=== PATIENT | female | born 1950 | race Caucasian/White ===

== ENCOUNTER → 2023-10-24 06:24 | Day surgery (SDC) | payer OTHER, SELFPAY | LOC: GI 06:24 | PROVIDERS: ATTENDING PHYSICIAN Internal Medicine | DX: K91.850 Pouchitis (principal); K52.3 Indeterminate colitis; K63.89 Other specified diseases of intestine; K63.3 Ulcer of intestine; K62.4 Stenosis of anus and rectum; L29.0 Pruritus ani; Z98.0 Intestinal bypass and anastomosis status | CPT/HCPCS: 44386; 88305; 88342 ==

== ENCOUNTER → 2024-05-04 08:48 | Outpatient (REF) | payer OTHER, SELFPAY | LOC: WDC 08:48 | PROVIDERS: ATTENDING PHYSICIAN Obstetrics & Gynecology | DX: Z12.31 Encounter for screening mammogram for malignant neoplasm of breast (principal) | CPT/HCPCS: 77063; 77067 ==

== ENCOUNTER → 2024-07-06 06:29 | Day surgery (SDC) | payer OTHER, SELFPAY | LOC: GI 06:29 | PROVIDERS: ATTENDING PHYSICIAN Internal Medicine | DX: K91.858 Other complications of intestinal pouch (principal); K91.850 Pouchitis; K60.2 Anal fissure, unspecified; R21 Rash and other nonspecific skin eruption; K62.4 Stenosis of anus and rectum; Z98.0 Intestinal bypass and anastomosis status; K63.3 Ulcer of intestine; Z90.49 Acquired absence of other specified parts of digestive tract; K52.3 Indeterminate colitis; Y83.8 Other surgical procedures as the cause of abnormal reaction of the patient, or of later complication, without mention of misadventure at the time of the procedure | CPT/HCPCS: 44386; 88305 ==

== ENCOUNTER → 2024-07-23 09:22 | Outpatient (REF) | payer OTHER, SELFPAY | LOC: RAD 09:22 | PROVIDERS: ATTENDING PHYSICIAN Otolaryngology Facial Plastic Surgery; FAMILY PHYSICIAN Family Medicine | DX: E04.2 Nontoxic multinodular goiter (principal) | CPT/HCPCS: 76536 ==

== ENCOUNTER → 2024-11-26 08:12 | Outpatient (REF) | payer OTHER, SELFPAY | LOC: RCS 08:12 | PROVIDERS: ATTENDING PHYSICIAN Physician Assistant Medical; FAMILY PHYSICIAN Family Medicine | DX: R00.1 Bradycardia, unspecified (principal) | CPT/HCPCS: 93225; 93226 ==

== ENCOUNTER → 2024-12-03 09:28 | Outpatient (REF) | payer OTHER, SELFPAY ==
[2024-12-03 11:59] LABS: Free T3 3.35 pg/ml (2.77-5.27); Free T4 0.97 ng/dl (0.78-2.19)
[2024-12-03 12:12] LABS: TSH 1.75 uIU/ml (0.47-4.68); TSH Reflex To Free T4 1.75 uIU/ml (0.47-4.68)
== END ==
LOC: REG 09:28
PROVIDERS: ATTENDING PHYSICIAN Physician Assistant Medical; FAMILY PHYSICIAN Family Medicine
DX: R00.2 Palpitations (principal)
CPT/HCPCS: 36415; 84439; 84443; 84481

== ENCOUNTER → 2024-12-25 13:46 | Outpatient (REF) | payer OTHER, SELFPAY | LOC: RCS 13:46 | PROVIDERS: ATTENDING PHYSICIAN Nuclear Medicine Nuclear Cardiology; FAMILY PHYSICIAN Family Medicine | DX: R07.9 Chest pain, unspecified (principal); R42 Dizziness and giddiness; R55 Syncope and collapse; I95.1 Orthostatic hypotension | CPT/HCPCS: 93306 ==

== ENCOUNTER → 2024-12-28 08:25 | Outpatient (REF) | payer OTHER, SELFPAY | LOC: HWRCS 08:25 | PROVIDERS: ATTENDING PHYSICIAN Nuclear Medicine Nuclear Cardiology; FAMILY PHYSICIAN Family Medicine | DX: R07.9 Chest pain, unspecified (principal); R42 Dizziness and giddiness; R55 Syncope and collapse; I95.1 Orthostatic hypotension | CPT/HCPCS: 78452; 93017; A9500; J2785 ==

== ENCOUNTER → 2025-02-24 14:22 | Outpatient (REF) | payer OTHER, SELFPAY ==
[2025-02-24 15:42] LABS: % Basophils 0.4 % (0-2); % Eosinophils 1.3 % (0-6); % Immature Granulocytes 0.4 % (0-0.5); % Lymphocytes 20.6 % (20.5-51.1); % Monocytes 7.6 % (1.7-9.3); % Neutrophils 69.7 % (42.2-75.2); Absolute Eosinophils 0.1 10^3/uL (0-0.7); Absolute Lymphocytes 1.6 10^3/uL (1.2-3.4); Absolute Monocytes 0.6 10^3/uL (0.1-0.6); Absolute Neutrophils 5.4 10^3/uL (1.4-6.5); Hematocrit 40.1 % (37.0-47.0); Hemoglobin 13.4 g/dL (12.0-16.0); Mean Corp Hgb Conc. 33.4 g/dL (33.0-37.0); Mean Corpuscular Hgb 31.2 pg (27.0-31.0); Mean Corpuscular Volume 93.3 fL (81.0-99.0); Mean Platelet Volume 10.1 fL (7.4-10.4); Nucleated Red Blood Cells % 0 %; Platelet Count 320 10^3/uL (130-400); Red Cell Dist. Width 13.1 % (11.5-14.5); White Blood Cell Count 7.8 10^3/uL (4.8-10.8)
[2025-02-24 16:04] LABS: ALT (SGPT) 23 U/L (0-35); AST (SGOT) 23 U/L (14-36); Albumin 4.2 g/dl (3.5-5.0); Alkaline Phosphatase 57 U/L (38-126); Blood Urea Nitrogen 22 mg/dl (7-17); Calcium 9.9 mg/dl (8.4-10.2); Carbon Dioxide 27 mmol/L (22-30); Chloride 107 mmol/L (98-107); Glucose 91 mg/dl (70-99); Potassium 4.6 mmol/L (3.5-5.1); Sodium 141 mmol/L (135-145); Total Bilirubin 0.4 mg/dl (0.2-1.3); Total Protein 7.6 g/dl (6.3-8.2); eGFR 53.39
== END ==
LOC: REG 14:22
PROVIDERS: ATTENDING PHYSICIAN Internal Medicine; FAMILY PHYSICIAN Internal Medicine Cardiovascular Disease
DX: K91.850 Pouchitis (principal); K52.9 Noninfective gastroenteritis and colitis, unspecified; E86.0 Dehydration
CPT/HCPCS: 36415; 80053; 85025

== ENCOUNTER 2025-04-12 11:12 | Outpatient (RCR) | payer OTHER, SELFPAY ==
[2025-03-16 10:10] VITALS: BP 120/57
[2025-03-16] MEDS: NSS 1000 IV (10:14)
[2025-03-29 09:20] VITALS: BP 116/74
[2025-03-29] MEDS: NSS 1000 IV (09:42)
[2025-03-29 10:45] VITALS: BP 118/78
[2025-04-12] MEDS: NSS 500 IV ×2 (11:46→12:16)
[2025-04-12 11:48] VITALS: BP 108/74
== END 2025-04-13 08:58 | disposition home or self-care (01) ==
LOC: OID 11:12
PROVIDERS: ATTENDING PHYSICIAN Internal Medicine; FAMILY PHYSICIAN Family Medicine
DX: E86.0 Dehydration (principal); K91.850 Pouchitis; K52.9 Noninfective gastroenteritis and colitis, unspecified; R74.01 Elevation of levels of liver transaminase levels; R21 Rash and other nonspecific skin eruption
CPT/HCPCS: 96360

== ENCOUNTER 2025-05-10 09:13 | Outpatient (RCR) | payer OTHER, SELFPAY ==
[2025-04-26 09:31] VITALS: BP 127/57
[2025-04-26] MEDS: NSS 1000 IV (09:40)
[2025-04-26 10:10] VITALS: BP 130/72
[2025-05-10 09:25] VITALS: BP 95/66
[2025-05-10] MEDS: NSS 1000 IV (09:25)
== END 2025-05-16 23:59 | disposition home or self-care (01) ==
LOC: OID 09:13
PROVIDERS: ATTENDING PHYSICIAN Internal Medicine; FAMILY PHYSICIAN Family Medicine
DX: K91.850 Pouchitis (principal); E86.0 Dehydration; K52.9 Noninfective gastroenteritis and colitis, unspecified; R74.01 Elevation of levels of liver transaminase levels; R21 Rash and other nonspecific skin eruption
CPT/HCPCS: 96365

== ENCOUNTER 2025-05-25 10:09 | Outpatient (RCR) | payer OTHER, SELFPAY ==
[2025-05-25] MEDS: NSS 1000 IV (10:36)
[2025-05-25 10:42] VITALS: BP 138/84
== END 2025-06-15 23:59 | disposition home or self-care (01) ==
LOC: OID 10:09
PROVIDERS: ATTENDING PHYSICIAN Internal Medicine; FAMILY PHYSICIAN Family Medicine
DX: K91.850 Pouchitis (principal); E86.0 Dehydration; K52.9 Noninfective gastroenteritis and colitis, unspecified; R74.01 Elevation of levels of liver transaminase levels; R21 Rash and other nonspecific skin eruption
CPT/HCPCS: 96360

== ENCOUNTER → 2025-07-05 15:04 | Outpatient (REF) | payer OTHER, SELFPAY ==
[2025-07-05 16:29] LABS: Hematocrit 39.5 % (37.0-47.0); Hemoglobin 12.9 g/dL (12.0-16.0); Mean Corp Hgb Conc. 32.7 g/dL (33.0-37.0); Mean Corpuscular Volume 93.6 fL (81.0-99.0); Nucleated Red Blood Cells % 0 %; Platelet Count 282 10^3/uL (130-400); Red Cell Dist. Width 13.0 % (11.5-14.5)
[2025-07-05 16:34] LABS: ALT (SGPT) 20 U/L (0-35); AST (SGOT) 23 U/L (14-36); Albumin 4.4 g/dl (3.5-5.0); Alkaline Phosphatase 52 U/L (38-126); Blood Urea Nitrogen 19 mg/dl (7-17); Calcium 10.0 mg/dl (8.4-10.2); Carbon Dioxide 28 mmol/L (22-30); Chloride 104 mmol/L (98-107); Glucose 78 mg/dl (70-99); Potassium 4.6 mmol/L (3.5-5.1); Sodium 140 mmol/L (135-145); Total Protein 7.7 g/dl (6.3-8.2); eGFR 59.86
[2025-07-05 17:06] LABS: Ferritin 23.5 ng/ml (11.1-264.0)
== END ==
LOC: REG 15:04
PROVIDERS: ATTENDING PHYSICIAN Internal Medicine; FAMILY PHYSICIAN Family Medicine
DX: K52.9 Noninfective gastroenteritis and colitis, unspecified (principal); R79.0 Abnormal level of blood mineral
CPT/HCPCS: 36415; 80053; 82728; 85025

== ENCOUNTER 2025-07-06 09:05 | Outpatient (RCR) | payer OTHER, SELFPAY ==
[2025-06-21 09:15] VITALS: BP 107/67
[2025-06-21] MEDS: NSS 1000 IV (09:23)
[2025-07-06 09:15] VITALS: BP 123/65
[2025-07-06] MEDS: NSS 1000 IV (09:28)
== END 2025-07-07 08:41 | disposition home or self-care (01) ==
LOC: OID 09:05
PROVIDERS: ATTENDING PHYSICIAN Internal Medicine; FAMILY PHYSICIAN Family Medicine
DX: K91.850 Pouchitis (principal); E86.0 Dehydration; K52.9 Noninfective gastroenteritis and colitis, unspecified; R74.01 Elevation of levels of liver transaminase levels; R21 Rash and other nonspecific skin eruption
CPT/HCPCS: 96360; 96361

== ENCOUNTER 2025-08-03 09:05 | Outpatient (RCR) | payer OTHER, SELFPAY ==
[2025-07-20 09:24] VITALS: BP 113/73
[2025-07-20] MEDS: NSS 1000 IV (09:36)
[2025-08-03 09:26] VITALS: BP 117/58
[2025-08-03] MEDS: NSS 1000 IV (09:32)
== END 2025-08-04 09:19 | disposition home or self-care (01) ==
LOC: OID 09:05
PROVIDERS: ATTENDING PHYSICIAN Internal Medicine; FAMILY PHYSICIAN Family Medicine
DX: K91.850 Pouchitis (principal); E86.0 Dehydration; K52.9 Noninfective gastroenteritis and colitis, unspecified; R74.01 Elevation of levels of liver transaminase levels; R21 Rash and other nonspecific skin eruption
CPT/HCPCS: 96360; 96361

== ENCOUNTER 2025-09-01 09:06 | Outpatient (RCR) | payer OTHER, SELFPAY ==
[2025-08-17 09:15] VITALS: BP 143/85
[2025-08-17] MEDS: NSS 1000 IV (09:28)
[2025-09-01 09:15] VITALS: BP 134/69
[2025-09-01] MEDS: NSS 1000 IV (09:26)
== END 2025-09-15 23:59 | disposition home or self-care (01) ==
LOC: OID 09:06
PROVIDERS: ATTENDING PHYSICIAN Internal Medicine; FAMILY PHYSICIAN Family Medicine
DX: K91.850 Pouchitis (principal); E86.0 Dehydration; K52.9 Noninfective gastroenteritis and colitis, unspecified; R74.01 Elevation of levels of liver transaminase levels; R21 Rash and other nonspecific skin eruption
CPT/HCPCS: 96360